=== PATIENT | male | born 1955 | race Caucasian/White ===

== ENCOUNTER 2018-05-25 13:10 | Emergency (ER) | payer MEDICARE ==
[2018-05-25 13:35] LABS: Bilirubin Small (Negative); Blood, Urine Trace (Negative); Clarity Clear (Clear); Glucose, Urine (Dipstick) Negative (Negative); Leukocyte Negative (Negative); Nitrite Negative (Negative); Protein, Urine (Dipstick) Trace mg/dL (Neg-Trace); Specific Gravity, Urine 1.025 (1.005-1.030)
[2018-05-25 13:42] LABS: Bacteria/HPF Rare-Few HPF (None Seen); Hyaline Casts/LPF 0-3 HYALINE CAST LPF (0-3 Hyaline); Squamous Epithelial 0-3 HPF (0-3); WBC/HPF 0-3 HPF (0-3)
== END 2018-05-25 14:08 | disposition home or self-care (01) ==
LOC: SCSER 13:10
DX: M54.5 Low back pain (principal); F17.210 Nicotine dependence, cigarettes, uncomplicated
CPT/HCPCS: 81003; 81015; 99283

== ENCOUNTER 2021-10-04 00:47 | Inpatient (IN) | payer MEDICARE, SELFPAY ==
[2021-10-04] MEDS ORDERED: Aspirin Chewable 81 MG TAB ONE (00:55)
[2021-10-04] MEDS ORDERED: Nitroglycerin 0.4 MG TAB (25 Tab Bottle) ONE (00:55)
[2021-10-04] MEDS ORDERED: Heparin 10,000 UNITS/ 10 ML VIAL ONE ×3 (00:55→06:26)
[2021-10-04 01:20] LABS: #Basophils 0.1 thou/uL (0.0-0.2); #Eosinphils 0.1 thou/uL (0.0-0.7); #Lymphocytes 1.6 thou/uL (1.20-3.40); #Monocytes 0.2 thou/uL (0.11-0.59); #Neutrophils 9.4 thou/uL (1.40-6.50); %Basophils 0.4 % (0.0-1.0); %Eosinophils 0.6 % (0.0-10.0); %Monocytes 1.9 % (0.0-10.0); %Neutrophils 83.1 % (42.0-75.0); Hemoglobin 17.1 g/dL (14.0-18.0); Mean Corpuscular HGB CONC 33.4 g/dL (32.0-36.0); Mean Corpuscular Volume 92.9 fL (78.0-98.0); Mean Platelet Volume 7.7 fL (7.4-10.4); Platelet Count 273 thou/uL (130-400); RBC Distribution Width 12.2 % (11.5-14.5); Red Blood Cell (RBC) Count 5.52 mill/uL (4.70-6.10); White Blood Cell (WBC) Count 11.3 thou/uL (4.8-10.8)
[2021-10-04] MEDS ORDERED: Lidocaine 1% (PF) 30 ML VIAL ONE (01:22)
[2021-10-04 01:31] LABS: PTT 30.8 sec (22.9-36.1); Prothrombin Time 12.9 sec (12.0-14.7)
[2021-10-04 01:52] LABS: ALT (SGPT) 17 U/L (8-55); AST (SGOT) 14 U/L (5-34); Albumin 4.4 g/dL (3.4-4.8); Alkaline Phosphatase 98 U/L (40-110); Anion Gap 17 mmol/L (10-20); BUN (Urea Nitrogen) 14 mg/dL (8.4-25.7); Bilirubin, Total 0.4 mg/dL (0.2-1.2); Calc. Creatinine Clearance 0 mL/min (70-130); Calcium 9.5 mg/dL (7.8-10.44); Carbon Dioxide 21 mmol/L (23-31); Chloride 105 mmol/L (98-107); Estimated GFR 87; Glucose 146 mg/dL (80-115); Potassium 4.8 mmol/L (3.5-5.1); Protein, Total 7.4 g/dL (5.8-8.1); Sodium 138 mmol/L (136-145)
[2021-10-04 01:59] LABS: SARS-CoV-2 NAA Rapid Test Not Detected (NotDetected)
[2021-10-04 02:05] LABS: CKMB 1.8 ng/mL (0-6.6)
[2021-10-04] MEDS ORDERED: Acetaminophen 325 MG TAB PO PRN (03:26)
[2021-10-04] MEDS ORDERED: Ondansetron PF 4 MG/2 ML Vial IVP PRN (03:30)
[2021-10-04] MEDS ORDERED: Ondansetron ODT 4 MG TAB SL PRN (03:30)
[2021-10-04] MEDS ORDERED: Sodium Chloride 0.9% 1,000 ML IV SCH (03:30)
[2021-10-04] MEDS ORDERED: Morphine 2 MG/ML VIAL SLOW IVP PRN ×2 (03:35)
[2021-10-04] MEDS ORDERED: Nitroglycerin 0.4 MG TAB (25 Tab Bottle) SL PRN (03:36)
[2021-10-04] MEDS ORDERED: Nitroglycerin 2% Ointment 1 INCH/1 GM Packet TOP SCH (03:45)
[2021-10-04 03:58] VITALS: BMI 26.2
[2021-10-04] MEDS ORDERED: Metoprolol Tartrate 25 MG TAB ONE (04:41)
[2021-10-04] MEDS: Sodium Chloride 0.9% 1,000 ML IV SCH ×2 (05:07→16:19)
[2021-10-04 05:28] LABS: #Lymphocytes 1.5 thou/uL (1.20-3.40); #Monocytes 0.3 thou/uL (0.11-0.59); #Neutrophils 11.4 thou/uL (1.40-6.50); %Basophils 0.2 % (0.0-1.0); %Eosinophils 0.2 % (0.0-10.0); %Lymphocytes 11.2 % (21.0-51.0); %Monocytes 2.2 % (0.0-10.0); %Neutrophils 86.3 % (42.0-75.0); Hemoglobin 14.5 g/dL (14.0-18.0); Mean Corpuscular HGB CONC 32.9 g/dL (32.0-36.0); Mean Corpuscular Hemoglobin 30.6 pg (27.0-31.0); Mean Corpuscular Volume 92.9 fL (78.0-98.0); Mean Platelet Volume 7.4 fL (7.4-10.4); Platelet Count 235 thou/uL (130-400); RBC Distribution Width 12.2 % (11.5-14.5); Red Blood Cell (RBC) Count 4.75 mill/uL (4.70-6.10); White Blood Cell (WBC) Count 13.2 thou/uL (4.8-10.8)
[2021-10-04 05:52] LABS: Albumin 3.8 g/dL (3.4-4.8); Anion Gap 12 mmol/L (10-20); BUN (Urea Nitrogen) 12 mg/dL (8.4-25.7); Bilirubin, Total 0.3 mg/dL (0.2-1.2); Calc. Creatinine Clearance 109 mL/min (70-130); Calcium 8.6 mg/dL (7.8-10.44); Carbon Dioxide 21 mmol/L (23-31); Chloride 108 mmol/L (98-107); Estimated GFR 100; Glucose 126 mg/dL (80-115); Protein, Total 6.6 g/dL (5.8-8.1); Sodium 137 mmol/L (136-145)
[2021-10-04 05:53] LABS: ALT (SGPT) 17 U/L (8-55); AST (SGOT) 12 U/L (5-34); Alkaline Phosphatase 82 U/L (40-110); Cardiac Risk 7.7 (Less than 4.5); Cholesterol 238 mg/dl (< 200 Desired); Globulin 2.8 g/dL (2.4-3.5); HDL Cholesterol 31 mg/dL (>60 Neg Risk); LDL Cholesterol, Calculated 189 mg/dL; Triglycerides 92 mg/dL (Less than 150)
[2021-10-04 05:55] LABS: Troponin I 0.188 ng/mL (< 0.028)
[2021-10-04] MEDS ORDERED: Nitroglycerin 100MG/250ML BOT 250 ML ONE (06:26)
[2021-10-04] MEDS ORDERED: Verapamil 5 MG/2 ML VIAL ONE (06:26)
[2021-10-04] MEDS ORDERED: Midazolam HCl 2 mg/2 ml Vial ONE ×3 (06:28→09:39)
[2021-10-04] MEDS ORDERED: Fentanyl 100 MCG/2 ML VIAL ONE (06:28)
[2021-10-04] MEDS ORDERED: Lidocaine 1% PF 5 ML VIAL ONE (07:15)
[2021-10-04] MEDS ORDERED: Morphine 4 MG/ML VIAL ONE (08:12)
[2021-10-04] MEDS ORDERED: Iopamidol 370 76% 100 ML VIAL ONE (09:08)
[2021-10-04] MEDS ORDERED: Iopamidol 370 76% 50 ML VIAL FS ONE (09:08)
[2021-10-04] MEDS ORDERED: TICAGRELOR 90 MG TABLET ONE (09:46)
[2021-10-04] MEDS ORDERED: Aggrastat 12.5 MG/250 ML 250 ML ONE (09:58)
[2021-10-04] MEDS ORDERED: TICAGRELOR 90 MG TABLET PO SCH (10:47)
[2021-10-04] MEDS ORDERED: Mag-Al 1200 mg/1200 mg/30 ML UDCUP PO PRN (10:47)
[2021-10-04] MEDS ORDERED: Aggrastat 12.5 MG/250 ML 250 ML IVPB SCH (10:47)
[2021-10-04] MEDS ORDERED: Acetaminophen/Codeine 30-300mg Tablet PO PRN (10:47)
[2021-10-04] MEDS ORDERED: Milk Of Magnesia 30 ML UDCUP PO PRN (10:47)
[2021-10-04] MEDS ORDERED: Zolpidem Tartrate 5 MG TAB PO PRN (10:47)
[2021-10-04] MEDS: Nicotine 21 MG PATCH TD SCH (13:50)
[2021-10-04 14:54] LABS: Troponin I 0.917 ng/mL (< 0.028)
[2021-10-04] MEDS: Metoprolol Tartrate 25 MG TAB PO SCH (18:06)
[2021-10-04] MEDS ORDERED: Metoprolol Tartrate 25 MG TAB PO SCH (18:45)
[2021-10-04 19:04] LABS: Troponin I 5.078 ng/mL (< 0.028)
[2021-10-04] MEDS: TICAGRELOR 90 MG TABLET PO SCH (21:42)
[2021-10-04] MEDS: Atorvastatin Calcium 40 MG TAB PO SCH (21:42)
[2021-10-05] MEDS: Sodium Chloride 0.9% 1,000 ML IV SCH ×2 (02:49→14:25)
[2021-10-05 04:02] LABS: #Basophils 0.1 thou/uL (0.0-0.2); #Eosinphils 0.1 thou/uL (0.0-0.7); #Lymphocytes 1.8 thou/uL (1.20-3.40); #Monocytes 0.9 thou/uL (0.11-0.59); #Neutrophils 7.2 thou/uL (1.40-6.50); %Basophils 0.6 % (0.0-1.0); %Eosinophils 1.5 % (0.0-10.0); %Lymphocytes 17.6 % (21.0-51.0); %Monocytes 8.5 % (0.0-10.0); %Neutrophils 71.8 % (42.0-75.0); Hemoglobin 13.8 g/dL (14.0-18.0); Mean Corpuscular HGB CONC 33.1 g/dL (32.0-36.0); Mean Corpuscular Hemoglobin 30.9 pg (27.0-31.0); Mean Corpuscular Volume 93.5 fL (78.0-98.0); Mean Platelet Volume 7.7 fL (7.4-10.4); Platelet Count 213 thou/uL (130-400); RBC Distribution Width 12.3 % (11.5-14.5); Red Blood Cell (RBC) Count 4.45 mill/uL (4.70-6.10)
[2021-10-05 04:07] LABS: ALT (SGPT) 15 U/L (8-55); AST (SGOT) 31 U/L (5-34); Albumin 3.4 g/dL (3.4-4.8); Alkaline Phosphatase 76 U/L (40-110); Anion Gap 15 mmol/L (10-20); BUN (Urea Nitrogen) 10 mg/dL (8.4-25.7); Bilirubin, Total 0.5 mg/dL (0.2-1.2); Calc. Creatinine Clearance 109 mL/min (70-130); Calcium 8.5 mg/dL (7.8-10.44); Carbon Dioxide 20 mmol/L (23-31); Chloride 110 mmol/L (98-107); Estimated GFR 100; Globulin 2.4 g/dL (2.4-3.5); Glucose 94 mg/dL (80-115); Potassium 3.7 mmol/L (3.5-5.1); Protein, Total 5.8 g/dL (5.8-8.1); Sodium 141 mmol/L (136-145)
[2021-10-05] MEDS: Nicotine 21 MG PATCH TD SCH (04:25)
[2021-10-05] MEDS: Metoprolol Tartrate 25 MG TAB PO SCH ×2 (04:26→16:34)
[2021-10-05] MEDS ORDERED: Electrolyte Replacement Protocol 1 EACH FS SCH (08:00)
[2021-10-05] MEDS: Aspirin Chewable 81 MG TAB PO SCH (08:02)
[2021-10-05] MEDS: Lisinopril 2.5 MG TAB PO SCH (08:02)
[2021-10-05] MEDS: TICAGRELOR 90 MG TABLET PO SCH ×2 (08:02→20:51)
[2021-10-05] MEDS ORDERED: Electrolyte Replacement Protocol FS PRN (08:15)
[2021-10-05 08:18] LABS: Magnesium 1.9 mg/dL (1.6-2.6)
[2021-10-05] MEDS ORDERED: Magnesium 2 GM/50 ML(in water) 2 GM in Premix Bag 1 BAG IVPB SCH (09:00)
[2021-10-05] MEDS ORDERED: Communication Order-Pharmacy FS PRN (10:45)
[2021-10-05] MEDS: Atorvastatin Calcium 40 MG TAB PO SCH (20:51)
[2021-10-06] MEDS: Sodium Chloride 0.9% 1,000 ML IV SCH ×2 (02:31→16:17)
[2021-10-06 04:07] LABS: #Basophils 0.1 thou/uL (0.0-0.2); #Eosinphils 0.4 thou/uL (0.0-0.7); #Lymphocytes 1.4 thou/uL (1.20-3.40); #Monocytes 0.8 thou/uL (0.11-0.59); #Neutrophils 6.7 thou/uL (1.40-6.50); %Basophils 1.2 % (0.0-1.0); %Lymphocytes 14.9 % (21.0-51.0); %Monocytes 8.7 % (0.0-10.0); %Neutrophils 71.3 % (42.0-75.0); Hemoglobin 12.8 g/dL (14.0-18.0); Mean Corpuscular HGB CONC 34.1 g/dL (32.0-36.0); Mean Corpuscular Hemoglobin 31.5 pg (27.0-31.0); Mean Corpuscular Volume 92.4 fL (78.0-98.0); Mean Platelet Volume 7.5 fL (7.4-10.4); Platelet Count 196 thou/uL (130-400); RBC Distribution Width 12.3 % (11.5-14.5); Red Blood Cell (RBC) Count 4.07 mill/uL (4.70-6.10); White Blood Cell (WBC) Count 9.3 thou/uL (4.8-10.8)
[2021-10-06 04:32] LABS: Anion Gap 13 mmol/L (10-20); BUN (Urea Nitrogen) 11 mg/dL (8.4-25.7); Calc. Creatinine Clearance 128 mL/min (70-130); Calcium 8.3 mg/dL (7.8-10.44); Carbon Dioxide 19 mmol/L (23-31); Chloride 107 mmol/L (98-107); Estimated GFR 105; Glucose 91 mg/dL (80-115); Potassium 3.4 mmol/L (3.5-5.1); Sodium 136 mmol/L (136-145)
[2021-10-06] MEDS: Nicotine 21 MG PATCH TD SCH (05:05)
[2021-10-06] MEDS: Metoprolol Tartrate 25 MG TAB PO SCH ×2 (05:05→16:17)
[2021-10-06] MEDS: Aspirin Chewable 81 MG TAB PO SCH (05:06)
[2021-10-06] MEDS: Lisinopril 2.5 MG TAB PO SCH (05:06)
[2021-10-06] MEDS ORDERED: Nitroglycerin 100MG/250ML BOT 250 ML ONE (06:31)
[2021-10-06] MEDS ORDERED: Verapamil 5 MG/2 ML VIAL ONE (06:31)
[2021-10-06] MEDS ORDERED: Heparin 10,000 UNITS/ 10 ML VIAL ONE (06:31)
[2021-10-06] MEDS ORDERED: Lidocaine 1% (PF) 30 ML VIAL ONE (06:31)
[2021-10-06] MEDS: TICAGRELOR 90 MG TABLET PO SCH ×2 (06:35→16:17)
[2021-10-06] MEDS ORDERED: Fentanyl 100 MCG/2 ML VIAL ONE (07:15)
[2021-10-06] MEDS ORDERED: Midazolam HCl 2 mg/2 ml Vial ONE (07:15)
[2021-10-06] MEDS ORDERED: Potassium Chloride 20 MEQ TAB PO SCH (08:00)
[2021-10-06] MEDS ORDERED: Magnesium 2 GM/50 ML(in water) 2 GM in Premix Bag 1 BAG IVPB SCH (08:00)
[2021-10-06 12:27] VITALS: TEMP 98.3
[2021-10-06] MEDS ORDERED: Iopamidol 370 76% 100 ML VIAL ONE (13:05)
[2021-10-06 13:41] VITALS: BP 108/66
[2021-10-06] MEDS: Atorvastatin Calcium 40 MG TAB PO SCH (16:17)
== END 2021-10-06 16:55 | disposition home or self-care (01) | DRG 247 ==
LOC: ERS 00:47 → ERHOLD 03:15 → CCU 06:53 → SURG A 10:20 → CCU 13:37 → 2NO 10-05 18:20
PROVIDERS: ADMIT Internal Medicine; ATTEND Internal Medicine
PROC: 027034Z Dilation of Coronary Artery, One Artery with Drug-eluting Intraluminal Device, Percutaneous Approach (ICD-10-PCS; principal; 2021-10-04)
PROC: 4A023N7 Measurement of Cardiac Sampling and Pressure, Left Heart, Percutaneous Approach (ICD-10-PCS; 2021-10-04)
PROC: B2111ZZ Fluoroscopy of Multiple Coronary Arteries using Low Osmolar Contrast (ICD-10-PCS; 2021-10-04)
PROC: B2151ZZ Fluoroscopy of Left Heart using Low Osmolar Contrast (ICD-10-PCS; 2021-10-04)
PROC: 0270356 Dilation of Coronary Artery, One Artery, Bifurcation, with Two Drug-eluting Intraluminal Devices, Percutaneous Approach (ICD-10-PCS; 2021-10-06)
PROC: B2111ZZ Fluoroscopy of Multiple Coronary Arteries using Low Osmolar Contrast (ICD-10-PCS; 2021-10-06)
DX: I21.19 ST elevation (STEMI) myocardial infarction involving other coronary artery of inferior wall (principal); I47.2 Ventricular tachycardia; Z20.822 Contact with and (suspected) exposure to COVID-19; F17.210 Nicotine dependence, cigarettes, uncomplicated; I10 Essential (primary) hypertension; H54.8 Legal blindness, as defined in USA; E83.42 Hypomagnesemia; D72.829 Elevated white blood cell count, unspecified; D64.9 Anemia, unspecified; Z71.6 Tobacco abuse counseling; Z82.49 Family history of ischemic heart disease and other diseases of the circulatory system; Z88.8 Allergy status to other drugs, medicaments and biological substances; Z88.0 Allergy status to penicillin
CPT/HCPCS: 36415; 71045; 80048; 80053; 80061; 82553; 83690; 83735; 84484; 85025; 85347; 85610; 85730; 92928; 93005; 93010; 93306; 93454; 93458; 93798; 93880; 96374; 96376; 99152; 99153; C1769; C1874; C1894; C9600; J1644; J2001; J2250; J2270; J3010; J3246; J3475; J7050; Q9967; U0002